=== PATIENT | female | born 1990 | race African-American/Black ===

== ENCOUNTER 2016-08-11 15:36 | Emergency (ER) | payer OTHER ==
[~2016-08-11] VITALS: Ht 165.1 cm; Wt 81.6 kg
[2016-08-11] MEDS ORDERED: IBUPROFEN 800 MG TABLET PO ONE (17:00)
[2016-08-11] MEDS ORDERED: IBUPROFEN 800 MG TABLET ONE (17:10)
[2016-08-11 17:29] LABS: *BILIRUBIN,URIN NEGATIVE (NEGATIVE); *BLOOD, URINE NEGATIVE (NEGATIVE); *COLOR,URINE YELLOW (YELLOW); *KETONES,URINE NEGATIVE (NEGATIVE); *PROTEIN,URINE NEGATIVE (NEGATIVE); *UROBILINOGEN,URINE 0.2 E.U./dl (NORMAL); LEUKOCYTE ESTERASE ,URINE NEGATIVE (NEGATIVE); NITRITE, URINE NEGATIVE (NEGATIVE); PH,URINE 5.5 (5.0-8.0); UGLUCOSE NEGATIVE (NEGATIVE)
[2016-08-11 17:30] LABS: *URINE HCG, QUAL NEGATIVE (NEGATIVE)
--- NOTE | 2016-08-11 17:31 | NUR ---
pt said that has to leave at this point, has to do something.
[2016-08-11 17:38] LABS: *CLARITY,URINE SLIGHTLY HAZY (CLEAR)
[2016-08-11 17:41] LABS: BACTERIA,URINE FEW /HPF (NONE SEEN); MUCUS,URINE MODERATE /LPF (0-FEW); RBC,URINE 0-3 /HPF (0-3); SQUAMOUS EPITHELIAL CELL,UR MODERATE /HPF (NONE SEEN); WBC,URINE 0-3 /HPF (0-3)
== END 2016-08-11 17:41 | disposition left against medical advice (07) ==
LOC: ER 15:36
DX: S16.1XXA Strain of muscle, fascia and tendon at neck level, initial encounter (principal); S39.012A Strain of muscle, fascia and tendon of lower back, initial encounter; V49.9XXA Car occupant (driver) (passenger) injured in unspecified traffic accident, initial encounter; Y93.89 Activity, other specified; Y99.8 Other external cause status; Y92.89 Other specified places as the place of occurrence of the external cause
CPT/HCPCS: 81001; 84703; 99283; A4663